=== PATIENT | female | born 1980 | race Caucasian/White ===

== ENCOUNTER 2017-07-28 21:00 | Emergency (ER) | payer MEDICARE, MEDICAID ==
[2017-07-28 21:06] VITALS: BP 139/74
--- NOTE | 2017-07-28 21:43 | XRAY Preliminary Report ---
Exam: XR FOOT 3 VIEW LT IMPRESSION: Dorsal foot soft tissue swelling. No evidence for acute fracture. [facility] SITE ID: [id number]
--- NOTE | 2017-07-28 21:43 | XRAY Report ---
EXAM: LEFT FOOT RADIOGRAPHY EXAM DATE: 07/28/2017 09:15 PM. CLINICAL HISTORY: Fall, swelling.Left foot pain, dorsal swelling. COMPARISON: None. TECHNIQUE: 3 views. FINDINGS: Bones: Normal. No fractures or bone lesions. Joints: Normal. No subluxations. Soft Tissues: Dorsal foot soft tissue swelling. No evidence for acute fracture. IMPRESSION: Dorsal foot soft tissue swelling. No evidence for acute fracture. [facility] Referring Provider Line: [phone] SITE ID: [id number]
[2017-07-28] MEDS ORDERED: HYDROcod/ACET 5/325 Prepack 4 PO STA (21:45)
--- NOTE | 2017-07-28 21:49 | ED Physician Documentation ---
PD HPI LOWER EXT INJURY - Stated complaint Stated Complaint: FOOT INJURY - Chief complaint Chief Complaint: Ext Problem - History obtained from History obtained from: Patient - History of Present Illness PD HPI LOW EXT INJURY LOCATION: Other (She came off a trampoline wrong and injured her left foot today with an inversion complains of medial and pain at the top of the foot. 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 Musculoskeletal: Other - Past Surgical History Past Surgical History: Yes General: Cholecystectomy - Present Medications Home Medications: Ambulatory Orders Medication Instructions Recorded Confirmed Oxycodone HCl/Acetaminophen 1 - 2 tab PO Q4H PRN #10 tablet 03/09/15 11/30/15 [Percocet 5-325 mg Tablet] Acetaminophen [Tylenol Extra 1,000 mg PO Q8HR 11/30/15 11/30/15 Strength] Amoxicillin 11/30/15 Cefdinir 300 mg PO BID #14 capsule 11/30/15 Docusate Sodium 250Mg Capsule 250 mg PO BID 11/30/15 11/30/15 [Colace 250Mg Capsule] Ibuprofen 800 mg PO TID 11/30/15 11/30/15 HYDROcod/ACETAM 5/325 [[place] 5/325] 1 - 2 ea PO Q6H PRN #7 tablet 07/28/17 - Allergies Allergies/Adverse Reactions: Allergies Allergy/AdvReac Type Severity Reaction Status Date / Time Penicillins Allergy Intermediate Rash Verified 07/28/17 21:06 Tetracyclines Allergy Intermediate Rash Verified 07/28/17 21:06 cephalexin monohydrate * AdvReac Intermediate VOMITING Verified 07/28/17 21:06 [From Keflex] erythromycin base AdvReac VOMITING Verified 07/28/17 21:06 - Social History Does the pt smoke?: Yes Smoking Status: Current every day smoker Does the pt drink ETOH?: Yes Does the pt have substance abuse?: Yes - Immunizations Immunizations are current?: No - POLST Patient has POLST: No PD ED PE NORMAL - Vitals Vital signs reviewed: Yes - General General: Alert and oriented X 3, No acute distress - Neck Neck: Supple, no meningeal sign, No bony TTP - Extremities Extremities: Other (Left foot:, She is clear objective swelling kind of over the distal second through fourth metatarsals with tenderness there and over the first metatarsal, no deformity.) - Neuro Neuro: Alert and oriented X 3, Normal speech Results - Vitals Vitals: Vital Signs - 24 hr 07/28/17 21:05 Temperature 36.9 C Heart Rate 88 Respiratory 16 Rate Blood Pressure 139/74 H O2 Saturation 99 Oxygen O2 Source Room air - Rads (name of study) 3v L foot Radiology: EMP read contemporaneously (yoly) Departure - Departure Disposition: Home, Self Care Clinical Impression: Sprain of left foot Qualifiers: Encounter type: initial encounter Qualified Code(s): S93.602A - Unspecified sprain of left foot, initial encounter Condition: Good Record reviewed to determine appropriate education?: Yes Instructions: ED Sprain Foot Prescriptions: HYDROcod/ACETAM 5/325 [[place] 5/325] 1 - 2 ea PO Q6H PRN #7 tablet PRN Reason: Pain Comments: Recheck with your doctor in 1 week if not better. Return if worse. Your blood pressure was elevated today on check into the emergency department. This does not mean that you have hypertension, it is a common phenomenon to come to the emergency department and have elevated blood pressure. I recommend that you see your primary care physician within the week to have it rechecked when you are feeling better. Do not drink or drive while taking narcotic pain medication. Note that many narcotic pain relievers also contain Tylenol/acetaminophen. Please ensure that your total dose of acetaminophen from all sources does not exceed 3 g (3000 mg) per day. You may get constipated while on this medication. Take a stool softener such as Colace twice a day while you are on it. Also add an jrdh-jqy-mirzoan laxative such as senna or MiraLAX on any day that you do not have a bowel movement. If you received a narcotic pain medication or sedative while in the emergency department, do not drive for the next 24 hours. Discharge Date/Time: 07/28/17 22:07
== END 2017-07-28 22:07 | disposition home or self-care (01) ==
LOC: ED 21:00
DX: S93.602A Unspecified sprain of left foot, initial encounter (principal); X50.1XXA Overexertion from prolonged static or awkward postures, initial encounter; Y93.44 Activity, trampolining; Y92.830 Public park as the place of occurrence of the external cause; R03.0 Elevated blood-pressure reading, without diagnosis of hypertension; F17.200 Nicotine dependence, unspecified, uncomplicated
CPT/HCPCS: 99283

== ENCOUNTER 2018-09-08 17:09 | Emergency (ER) | payer MEDICARE, MEDICAID ==
[2018-09-08 17:32] LABS: BASOPHILS # (AUTO) 0.1 10^3/uL (0.0-0.1); BASOPHILS % (AUTO) 0.6 %; EOSINOPHILS # (AUTO) 0.2 10^3/uL (0.0-0.7); EOSINOPHILS % (AUTO) 1.1 %; HGB - HEMOGLOBIN 15.6 g/dL (12.0-16.0); LYMPHOCYTES # (AUTO) 3.5 10^3/uL (1.5-3.5); LYMPHOCYTES % (AUTO) 23.7 %; MEAN CORPUSCULAR HEMOGLOBIN 29.8 pg (27.0-31.0); MEAN CORPUSCULAR VOLUME 90.4 fL (81.0-99.0); MONOCYTES # (AUTO) 0.8 10^3/uL (0.0-1.0); MONOCYTES % (AUTO) 5.4 %; NEUTROPHILS % (AUTO) 68.8 %; PLT - PLATELET COUNT 284 10^3/uL (130-450); RED BLOOD COUNT 5.23 10^6/uL (4.20-5.40); RED CELL DISTRIBUTION WIDTH 12.3 % (12.0-15.0); WHITE BLOOD COUNT 14.5 x10^3/uL (4.8-10.8)
[2018-09-08 17:40] LABS: BILIRUBIN,URINE NEGATIVE (NEGATIVE); GLUCOSE, URINE (UA) NEGATIVE (NEGATIVE); KETONES,URINE (UA) NEGATIVE (NEGATIVE); LEUKOCYTE ESTERASE, URINE NEGATIVE (NEGATIVE); NITRITE,URINE NEGATIVE (NEGATIVE); OCCULT BLOOD,URINE NEGATIVE (NEGATIVE); PH,URINE 7.5 PH (5.0-7.5); PROTEIN,URINE NEGATIVE (NEGATIVE); UROBILINOGEN,URINE 0.2 (NORMAL) E.U./dL (NORMAL)
[2018-09-08 17:43] LABS: ALBUMIN 4.5 g/dL (3.2-5.5); ALBUMIN/GLOBULIN RATIO 1.6 (1.0-2.2); BILIRUBIN,TOTAL 1.2 mg/dL (0.2-1.0); CALCIUM 9.3 mg/dL (8.5-10.3); CREATININE 0.8 mg/dL (0.4-1.0); TOTAL PROTEIN 7.4 g/dL (6.7-8.2)
[2018-09-08 17:43] LABS: CLARITY,URINE CLEAR (CLEAR); HCG UR QUAL NEGATIVE
[2018-09-08] MEDS ORDERED: ACETAMINOPHEN 1,000 MG/100 ML 100 ML IV STA (17:50)
--- NOTE | 2018-09-08 17:58 | ED Physician Documentation ---
History of Present Illness - Stated complaint Stated Complaint: FEM - Chief complaint Chief Complaint: General - History obtained from History obtained from: Patient - History of Present Illness Timing: Today Pain level max: 9 Pain level now: 9 - Additonal information Additional information: 38-year-old female presents to the emergency department the right lower quadrant and right pelvic pain for the past 3 to 4 hours. States it feels like "white hot shooting pain". Has never had pain like this before. Started her menses today. She states that her menses have been more painful than usual for the past several months. Denies any changes in sexual partners. No vaginal discharge. No recent surgery. Nothing makes it better. 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 Musculoskeletal: Other - Past Surgical History Past Surgical History: Yes General: Cholecystectomy - Present Medications Home Medications: Ambulatory Orders Medication Instructions Recorded Confirmed Oxycodone HCl/Acetaminophen 1 - 2 tab PO Q4H PRN #10 tablet 03/09/15 11/30/15 [Percocet 5-325 mg Tablet] Acetaminophen [Tylenol Extra 1,000 mg PO Q8HR 11/30/15 11/30/15 Strength] Amoxicillin 11/30/15 Cefdinir 300 mg PO BID #14 capsule 11/30/15 Docusate Sodium 250Mg Capsule 250 mg PO BID 11/30/15 11/30/15 [Colace 250Mg Capsule] Ibuprofen 800 mg PO TID 11/30/15 11/30/15 HYDROcod/ACETAM 5/325 [[place] 5/325] 1 - 2 ea PO Q6H PRN #7 tablet 07/28/17 Hydrocodone/Acetaminophen 1 - 2 each PO Q6H PRN #14 tablet 09/08/18 [Hydrocodon-Acetaminophen 5-325] Ibuprofen [Motrin] 800 mg PO Q8H PRN #30 tablet 09/08/18 Ondansetron Odt [Zofran] 4 mg TL Q6H PRN #10 tablet 09/08/18 - Allergies Allergies/Adverse Reactions: Allergies Allergy/AdvReac Type Severity Reaction Status Date / Time Penicillins Allergy Intermediate Rash Verified 09/08/18 17:15 Tetracyclines Allergy Intermediate Rash Verified 09/08/18 17:15 cephalexin monohydrate * AdvReac Intermediate VOMITING Verified 09/08/18 17:15 [From Keflex] erythromycin base AdvReac VOMITING Verified 09/08/18 17:15 - Social History Does the pt smoke?: Yes Smoking Status: Current every day smoker Does the pt drink ETOH?: Yes Does the pt have substance abuse?: No - Immunizations Immunizations are current?: Yes - POLST Patient has POLST: No PD ED PE NORMAL - Vitals Vital signs reviewed: Yes - General General: Alert and oriented X 3, No acute distress, Well developed/nourished - HEENT HEENT: PERRL, Moist mucous membranes - Neck Neck: Supple, no meningeal sign - Cardiac Cardiac: RRR, Strong equal pulses - Respiratory Respiratory: No respiratory distress, Clear bilaterally - Abdomen Abdomen: Soft, Non distended, Other (TTP RLQ no peritoneal signs. tender just below mcburney's point.) - Female Female : Pt declined - Back Back: No CVA TTP, No spinal TTP - Derm Derm: Warm and dry - Extremities Extremities: No edema - Neuro Neuro: Alert and oriented X 3 - Psych Psych: Normal mood, Normal affect Results - Vitals Vitals: Vital Signs - 24 hr 09/08/18 09/08/18 09/08/18 17:12 19:15 20:27 Temperature 36.8 C 36.9 C Heart Rate 80 78 66 Respiratory 14 16 18 Rate Blood Pressure 120/85 H 111/82 H 110/79 O2 Saturation 98 99 98 Oxygen O2 Source Room air - Labs Labs: Laboratory Tests 09/08/18 09/08/18 09/08/18 17:20 17:23 17:23 WBC 14.5 H RBC 5.23 Hgb 15.6 Hct 47.3 H MCV 90.4 MCH 29.8 MCHC 33.0 RDW 12.3 Plt Count 284 MPV 10.0 Neut # (Auto) 10.0 H Lymph # (Auto) 3.5 [place] # (Auto) 0.8 Eos # (Auto) 0.2 Baso # (Auto) 0.1 Absolute Nucleated RBC 0.00 Nucleated RBC % 0.0 Sodium 138 Potassium 3.8 Chloride 102 Carbon Dioxide 25 Anion Gap 11.0 BUN 15 Creatinine 0.8 Estimated GFR (MDRD) 80 L Glucose 100 Calcium 9.3 Total Bilirubin 1.2 H AST 16 ALT 14 Alkaline Phosphatase 44 Total Protein 7.4 Albumin 4.5 Globulin 2.9 Albumin/Globulin Ratio 1.6 Lipase 41 Urine Color YELLOW Urine Clarity CLEAR Urine pH 7.5 Ur Specific [place] 1.010 Urine Protein NEGATIVE Urine Glucose (UA) NEGATIVE Urine Ketones NEGATIVE Urine Occult Blood NEGATIVE Urine Nitrite NEGATIVE Urine Bilirubin NEGATIVE Urine Urobilinogen 0.2 (NORMAL) Ur Leukocyte Esterase NEGATIVE Ur Microscopic Review NOT INDICATED Urine Culture Comments NOT INDICATED Urine HCG, Qual NEGATIVE - Rads (name of study) CT abd/pelvis Radiology: Prelim report reviewed, EMP read contemporaneously, See rad report (Moderate right-sided hydroureteronephrosis, new since the prior of 11/30/2015 when there was mild hydronephrosis. Kidneys appear to enhance symmetrically. No obstructing calculus. Mid to distal ureter is difficult to delineate from surrounding structures. There appears to be a transition in the distal ureter. This could reflect stricture, neoplasm, or recently passed calculus. Follow-up urologic consultation and consideration of CT urogram or ureteroscopy is suggested. ) pelvic US Radiology: Prelim report reviewed, EMP read contemporaneously, See rad report (Intramural uterine fibroids. No other significant abnormality. No adnexal mass. No free fluid.Endometrial hickness is 10 mm) PD MEDICAL DECISION MAKING - ED course Complexity details: reviewed results, re-evaluated patient, considered differential, d/w patient ED course: 38-year-old female presents to the emergency department with right lower quadrant abdominal pain. She also has been having painful menses recently. Has a fibroid uterus on ultrasound. She also appears to have recently passed a right-sided ureteral stone. Pain well controlled in the emergency department. She states that she has had problems with this kidney in the past and I recommend that she see urology. Patient is well-appearing, nontoxic. Afebrile. Tolerating p.o. without difficulty. Pain well controlled. Patient counseled regarding signs and symptoms for which I believe and urgent re-evaluation would be necessary. Patient with good understanding of and agreement to plan and is comfortable going home at this time This document was made in part using voice recognition software. While efforts are made to proofread this document, sound alike and grammatical errors may occur. Departure - Departure Disposition: 01 Home, Self Care Clinical Impression: Ureteral stone Uterine fibroid Qualifiers: Uterine leiomyoma location: unspecified location Qualified Code(s): D25.9 - Leiomyoma of uterus, unspecified Condition: Good Health Concerns: pelvic pain Plan of Treatment: supportive Care Goals: improve pain Assessment: improved Instructions: ED Stone Renal Passed, ED Fibroids Follow-Up: [facility] [Provider Group] [facility] [Provider Group] [facility] [Provider Group] [facility] [Provider Group] Prescriptions: Hydrocodone/Acetaminophen [Hydrocodon-Acetaminophen 5-325] 1 - 2 each PO Q6H PRN #14 tablet PRN Reason: pain Ibuprofen [Motrin] 800 mg PO Q8H PRN #30 tablet PRN Reason: PAIN &/OR FEVER Ondansetron Odt [Zofran] 4 mg TL Q6H PRN #10 tablet PRN Reason: Nausea / Vomiting Comments: Return if you worsen. Follow-up with your doctor for further care. You should also follow-up with urology about your right kidney. Do not drink alcohol or drive while on narcotic pain medicine. Note that many narcotic pain relievers also contain tylenol/acetaminophen. Please ensure that your total dose of acetaminophen from all sources does not exceed 3 grams (3000mg) per day. You may constipated on this medication, take a stool softener such as "Colace" twice a day while you are on it. Also recommend a gucd-dmh-rqdekef laxative such as senna or MiraLAX any day that you do not have a bowel movement. If you received narcotic pain medication in the emergency department, do not drive or operate machinery for the next 24 hours. Moderate right-sided hydroureteronephrosis, new since the prior of 11/30/2015 when there was mild hydronephrosis. Kidneys appear to enhance symmetrically. No obstructing calculus. Mid to distal ureter is difficult to delineate from surrounding structures. There appears to be a transition in the distal ureter. This could reflect stricture, neoplasm, or recently passed calculus. Follow-up urologic consultation and consideration of CT urogram or ureteroscopy is suggested. Intramural uterine fibroids. No other significant abnormality. No adnexal mass. No free fluid.Endometrial thickness is 10 mm. Discharge Date/Time: 09/08/18 20:28
[2018-09-08] MEDS ORDERED: IOVERSOL 320 100 ML VIAL IVP ONE ×2 (18:01→19:41)
--- NOTE | 2018-09-08 19:22 | CT Report ---
Reason: RLQ abd pain Procedure Date: 09/08/2018 Accession Number: [id number] / [id number] Procedure: CT - Abdomen/Pelvis W CPT Code: FULL RESULT: EXAM: CT ABDOMEN AND PELVIS EXAM DATE: 09/08/2018 06:30 PM. CLINICAL HISTORY: RLQ abd pain. COMPARISONS: ABDOMEN/PELVIS W/O 11/30/2015 8:36 AM. TECHNIQUE: Routine helical CT imaging was performed through the abdomen and pelvis. IV contrast: 90 cc Optiray 320. Enteric contrast: No. Reconstructions: Coronal and sagittal. In accordance with CT protocol optimization, one or more of the following dose reduction techniques were utilized for this exam: automated exposure control, adjustment of mA and/or KV based on patient size, or use of iterative reconstructive technique. FINDINGS: ABDOMEN: Lung Bases: Incompletely included lower lungs are grossly clear. Heart size is within normal limits. No basilar effusions. Liver: Unremarkable. Spleen: 1.1 cm low-attenuation lesion in the spleen, likely benign. Pancreas: Unremarkable. Gallbladder/Bile Ducts: Gallbladder is unremarkable. Biliary tree is normal caliber. Adrenal Glands: Unremarkable. Kidneys: Left kidney: No mass, calculi, or hydronephrosis. Right kidney: Moderate hydroureteronephrosis. The ureter is difficult to follow, appearing to gradually transition distally to more normal caliber. No obstructing calculi. Peritoneum/Mesentery/Bowel: No free fluid, free air, or collection. No intestinal obstruction or inflammation. Appendix not definitely identified. No pericecal inflammatory changes. Lymph nodes: No mesenteric, periportal, or retroperitoneal lymphadenopathy. Vasculature: Abdominal aorta is nonaneurysmal. Portal vein is patent. Hepatic veins are patent. PELVIS: The bladder is unremarkable for the degree of distention. Uterus and ovaries are present. No obvious abnormally enlarged adnexal abnormalities. Device within the vagina. No pelvic lymphadenopathy. Bones: No suspicious osseous lesions. IMPRESSION: Moderate right-sided hydroureteronephrosis, new since the prior of 11/30/2015 when there was mild hydronephrosis. Kidneys appear to enhance symmetrically. No obstructing calculus. Mid to distal ureter is difficult to delineate from surrounding structures. There appears to be a transition in the distal ureter. This could reflect stricture, neoplasm, or recently passed calculus. Follow-up urologic consultation and consideration of CT urogram or ureteroscopy is suggested. [facility]
--- NOTE | 2018-09-08 19:37 | Ultrasound Report ---
Reason: pelvic pain, R Procedure Date: 09/08/2018 Accession Number: [id number] / [id number] Procedure: US - Pelvic w/Transvag+Doppler Comp CPT Code: FULL RESULT: EXAM: PELVIC ULTRASOUND EXAM DATE: 09/08/2018 06:23 PM. CLINICAL HISTORY: Pelvic pain, R. COMPARISON: None. TECHNIQUE: Realtime transabdominal pelvic scan performed to identify the uterus and adnexa and as an overview of other pelvic structures, followed by transvaginal scan to provide greater detail of the uterus and adnexa, with static image documentation. FINDINGS: Uterus: 9.5 x 5.4 x 6.6 cm, volume 180 cc. Anteverted position. Normal overall size and echotexture. Masses: Right fundal intramural fibroid measures 1 x 0.9 x 1.1 cm. Left lower intramural fibroid measures 0.9 x 0.7 x 1.4 cm. Endometrium: 10 mm. Normal. Cervix: Unremarkable. Right Ovary: 6 x 1.8 x 2.7 cm, volume 12.3 cc. Normal echotexture and blood flow. Left Ovary: 2.3 x 2.0 x 4.1 cm, volume 21.6 cc. Normal echotexture and blood flow. Free Fluid: None. Other: None. IMPRESSION: Intramural uterine fibroids. No other significant abnormality. No adnexal mass. No free fluid.Endometrial thickness is 10 mm. [facility]
[2018-09-08 20:28] VITALS: BP 110/79
== END 2018-09-08 20:28 | disposition home or self-care (01) ==
LOC: ED 17:09
DX: N13.2 Hydronephrosis with renal and ureteral calculous obstruction (principal); D25.1 Intramural leiomyoma of uterus; N94.6 Dysmenorrhea, unspecified; F17.200 Nicotine dependence, unspecified, uncomplicated
CPT/HCPCS: 36415; 74177; 76830; 76856; 80053; 81003; 81025; 83690; 85025; 93975; 96365; 99283; 99284; J0131; Q9967; 81001; 87086

== ENCOUNTER 2020-01-09 19:57 | Emergency (ER) | payer MEDICARE, MEDICAID ==
--- NOTE | 2020-01-09 21:20 | ED Physician Documentation ---
History of Present Illness - Stated complaint Stated Complaint: RT EAR PX - Chief complaint Chief Complaint: Heent - History obtained from History obtained from: Patient - Additonal information Additional information: The patient presents with complaints of right ear pain and drainage. She has a history of eczema. She acknowledges that she has been scratching at the outside of her ear where she has had an eczematous rash recently. However, she has started to note drainage from in the ear canal and has pain there as well. The drainage is yellowish. She has had no fevers, chills or sweats. Review of Systems Constitutional: reports: Reviewed and negative Eyes: reports: Reviewed and negative Ears: reports: Ear pain, Drainage/discharge. denies: Loss of hearing, Tinnitus/ringing, Foreign body Nose: reports: Reviewed and negative. denies: Rhinorrhea / runny nose, Congestion, Sinus pressure / pain Throat: reports: Reviewed and negative Cardiac: reports: Reviewed and negative. denies: Chest pain / pressure Respiratory: reports: Reviewed and negative. 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 Musculoskeletal: Other - Past Surgical History Past Surgical History: Yes General: Cholecystectomy - Present Medications Home Medications: Ambulatory Orders Medication Instructions Recorded Confirmed Oxycodone HCl/Acetaminophen 1 - 2 tab PO Q4H PRN #10 tablet 03/09/15 11/30/15 [Percocet 5-325 mg Tablet] Acetaminophen [Tylenol Extra 1,000 mg PO Q8HR 11/30/15 11/30/15 Strength] Amoxicillin 11/30/15 Cefdinir 300 mg PO BID #14 capsule 11/30/15 Docusate Sodium 250Mg Capsule 250 mg PO BID 11/30/15 11/30/15 [Colace 250Mg Capsule] Ibuprofen 800 mg PO TID 11/30/15 11/30/15 HYDROcod/ACETAM 5/325 [[place] 5/325] 1 - 2 ea PO Q6H PRN #7 tablet 07/28/17 Hydrocodone/Acetaminophen 1 - 2 each PO Q6H PRN #14 tablet 09/08/18 [Hydrocodon-Acetaminophen 5-325] Ibuprofen [Motrin] 800 mg PO Q8H PRN #30 tablet 09/08/18 Ondansetron Odt [Zofran] 4 mg TL Q6H PRN #10 tablet 09/08/18 Mupirocin 1 gm TP TID 10 Days #1 oin.pf.leonardo 01/09/20 Neomycin/Polymyx/Hc Otic Drops 4 drops OT QID 10 Days #1 bottle 01/09/20 [Cortisporin Ear Susp] Tramadol HCl [Ultram] 50 mg PO Q6H PRN 3 Days #10 tablet 01/09/20 - Allergies Allergies/Adverse Reactions: Allergies Allergy/AdvReac Type Severity Reaction Status Date / Time Penicillins Allergy Intermediate Rash Verified 01/09/20 20:08 Tetracyclines Allergy Intermediate Rash Verified 01/09/20 20:08 cephalexin monohydrate * AdvReac Intermediate VOMITING Verified 01/09/20 20:08 [From Keflex] erythromycin base AdvReac VOMITING Verified 01/09/20 20:08 - Social History Does the pt smoke?: Yes Smoking Status: Current every day smoker Does the pt drink ETOH?: Yes Does the pt have substance abuse?: No - Immunizations Immunizations are current?: Yes - POLST Patient has POLST: No PD ED PE NORMAL - Vitals Vital signs reviewed: Yes - General General: Alert and oriented X 3, No acute distress - HEENT HEENT: PERRL, Other (Left ear examination was unremarkable. Examination of her right ear revealed an excoriated area at her right EAC and extending down the pinna. There was surrounding erythema and swelling. There was scant purulent drainage coming from the canal. When examined with an otoscope there was scant puru) - Neck Neck: Supple, no meningeal sign - Cardiac Cardiac: RRR, No murmur - Respiratory Respiratory: Clear bilaterally - Abdomen Abdomen: Normal bowel sounds, Soft, Non tender, Non distended - Derm Derm: Warm and dry - Extremities Extremities: No deformity - Neuro Neuro: Alert and oriented X 3 - Psych Psych: Normal mood, Normal affect Results - Vitals Vitals: Vital Signs - 24 hr 01/09/20 01/09/20 20:00 21:43 Temperature 37.1 C 36.7 C Heart Rate 97 85 Respiratory 16 19 Rate Blood Pressure 123/81 H 111/77 O2 Saturation 97 98 Oxygen O2 Source Room air PD MEDICAL DECISION MAKING - ED course ED course: Clinically, the patient appears to have an acute right otitis externa. However, on the outside of the ear there is an area that appears to have skin breakdown due to eczema. There is surrounding cellulitis of the pinna.I discussed the pathophysiology of this with the patient. She was provided a prescription for both Cortisporin otic as well as mupirocin cream. We reviewed the appropriate use, risks and side effects of these as well as Ultram for which she was also provided a prescription. She is to follow-up in the next several days with her primary care provider for further evaluation and treatment. Departure - Departure Disposition: 01 Home, Self Care Clinical Impression: Impetigo Otitis externa Qualifiers: Otitis externa type: other infective Chronicity: acute Laterality: right Qualified Code(s): H60.391 - Other infective otitis externa, right ear Condition: Stable Instructions: Impetigo, ED Otitis Externa Prescriptions: Neomycin/Polymyx/Hc Otic Drops [Cortisporin Ear Susp] 4 drops OT QID 10 Days #1 bottle Mupirocin 1 gm TP TID 10 Days #1 oin.pf.leonardo Tramadol HCl [Ultram] 50 mg PO Q6H PRN 3 Days #10 tablet PRN Reason: Pain 5-7 Discharge Date/Time: 01/09/20 21:42
[2020-01-09] MEDS ORDERED: NEOMYCIN/POLYMYX/HC OTIC DROPS RIGHTEAR STA (21:31)
[2020-01-09 21:44] VITALS: BP 111/77
[2020-01-09] MEDS ORDERED: NEOMYCIN/BACITRA/POLYMYX OINT PACKET TOP ONE (22:00)
== END 2020-01-09 21:42 | disposition home or self-care (01) ==
LOC: ED 19:57
DX: H60.541 Acute eczematoid otitis externa, right ear (principal); H60.11 Cellulitis of right external ear; L01.00 Impetigo, unspecified; F17.200 Nicotine dependence, unspecified, uncomplicated
CPT/HCPCS: 99283; 99284; A9270

== ENCOUNTER 2021-04-05 15:48 | Emergency (ER) | payer MEDICARE, MEDICAID ==
[2021-04-05 17:04] LABS: BASOPHILS # (AUTO) 0.1 10^3/uL (0.0-0.1); BASOPHILS % (AUTO) 0.5 %; EOSINOPHILS % (AUTO) 0.1 %; HCT - HEMATOCRIT 43.3 % (37.0-47.0); HGB - HEMOGLOBIN 14.8 g/dL (12.0-16.0); LYMPHOCYTES # (AUTO) 1.8 10^3/uL (1.5-3.5); LYMPHOCYTES % (AUTO) 12.2 %; MEAN CORPUSCULAR HEMOGLOBIN 30.7 pg (27.0-31.0); MEAN CORPUSCULAR HGB CONC 34.2 g/dL (32.0-36.0); MEAN CORPUSCULAR VOLUME 89.8 fL (81.0-99.0); MEAN PLATELET VOLUME 10.2 fL (7.9-10.8); MONOCYTES # (AUTO) 1.3 10^3/uL (0.0-1.0); MONOCYTES % (AUTO) 8.8 %; NEUTROPHILS # (AUTO) 11.5 10^3/uL (1.5-6.6); NEUTROPHILS % (AUTO) 77.9 %; PLT - PLATELET COUNT 257 10^3/uL (130-450); RED BLOOD COUNT 4.82 10^6/uL (4.20-5.40); RED CELL DISTRIBUTION WIDTH 12.8 % (12.0-15.0); WHITE BLOOD COUNT 14.8 x10^3/uL (4.8-10.8)
[2021-04-05 17:17] LABS: ALBUMIN/GLOBULIN RATIO 1.3 (1.0-2.2); CALCIUM 8.8 mg/dL (8.5-10.3); CREATININE 0.9 mg/dL (0.4-1.0); TOTAL PROTEIN 7.2 g/dL (6.7-8.2)
[2021-04-05 17:25] LABS: GLUCOSE, URINE (UA) NEGATIVE (NEGATIVE); KETONES,URINE (UA) 40 mg/dL (NEGATIVE); LEUKOCYTE ESTERASE, URINE LARGE (NEGATIVE); NITRITE,URINE NEGATIVE (NEGATIVE); OCCULT BLOOD,URINE LARGE (NEGATIVE); PROTEIN,URINE 100 mg/dL (NEGATIVE); UROBILINOGEN,URINE 0.2 (NORMAL) E.U./dL (NORMAL)
[2021-04-05 17:40] LABS: BILIRUBIN,URINE NEGATIVE (NEGATIVE); CLARITY,URINE CLEAR (CLEAR); ICTOTEST,URINE NEGATIVE
[2021-04-05 17:41] LABS: BACTERIA,URINE Rare /HPF (None Seen); HCG UR QUAL POSITIVE; SQUAMOUS EPITHELIAL CELL,UR RARE Squamous (<= Few); WBC,URINE >25 /HPF (0-5)
--- NOTE | 2021-04-05 18:40 | ED Physician Documentation ---
PD HPI FEMALE - Stated complaint Stated Complaint: LOWER BACK PX, FLANK PX - Chief complaint Chief Complaint: Abd Pain - History obtained from History obtained from: Patient - History of Present Illness Timing - onset: Yesterday Timing - duration: Days (2) Timing - details: Gradual onset, Still present Associated symptoms: Back pain, Dysuria, Urinary frequency Contributing factors: No: Similar symptoms before: Diagnosis (UTI and pyelonephritis) Recently seen: Not recently seen - Additional information Additional information: Previously well 40-year-old female has developed developed urinary urgency frequency and dysuria and yesterday she has begun to develop some back pain as well as some nausea. She has not had fever with this. She has not vomited with this. She has had this happen to her previously she has had kidney infection a number of times and she feels like she is getting a urinary tract infection at least once a month. She has not been to see the urologist. Review of Systems Constitutional: denies: Fever Eyes: denies: Decreased vision Ears: denies: Ear pain Nose: denies: Rhinorrhea / runny nose, Congestion Throat: denies: Sore throat Cardiac: denies: Chest pain / pressure, Palpitations Respiratory: denies: Dyspnea, Cough GI: reports: Abdominal Pain, Nausea. denies: Vomiting, Constipation, Diarrhea : reports: Dysuria, Frequency Skin: denies: Rash Musculoskeletal: reports: Back pain. 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: Ovarian cysts Musculoskeletal: Other - Past Surgical History Past Surgical History: Yes General: Cholecystectomy - Present Medications Home Medications: Ambulatory Orders Medication Instructions Recorded Confirmed Oxycodone HCl/Acetaminophen 1 - 2 tab PO Q4H PRN #10 tablet 03/09/15 11/30/15 [Percocet 5-325 mg Tablet] Acetaminophen [Tylenol Extra 1,000 mg PO Q8HR 11/30/15 11/30/15 Strength] Amoxicillin 11/30/15 Cefdinir 300 mg PO BID #14 capsule 11/30/15 Docusate Sodium 250Mg Capsule 250 mg PO BID 11/30/15 11/30/15 [Colace 250Mg Capsule] Ibuprofen 800 mg PO TID 11/30/15 11/30/15 HYDROcod/ACETAM 5/325 [[place] 5/325] 1 - 2 ea PO Q6H PRN #7 tablet 07/28/17 Hydrocodone/Acetaminophen 1 - 2 each PO Q6H PRN #14 tablet 09/08/18 [Hydrocodon-Acetaminophen 5-325] Ibuprofen [Motrin] 800 mg PO Q8H PRN #30 tablet 09/08/18 Ondansetron Odt [Zofran] 4 mg TL Q6H PRN #10 tablet 09/08/18 Mupirocin 1 gm TP TID 10 Days #1 oin.pf.leonardo 01/09/20 Neomycin/Polymyx/Hc Otic Drops 4 drops OT QID 10 Days #1 bottle 01/09/20 [Cortisporin Ear Susp] Tramadol HCl [Ultram] 50 mg PO Q6H PRN 3 Days #10 tablet 01/09/20 Cefdinir 300 mg PO BID #14 cap 04/05/21 Ondansetron Odt [Zofran] 4 mg TL Q6H PRN #10 tablet 04/05/21 - Allergies Allergies/Adverse Reactions: Allergies Allergy/AdvReac Type Severity Reaction Status Date / Time Penicillins Allergy Intermediate Rash Verified 04/05/21 16:48 Tetracyclines Allergy Intermediate Rash Verified 04/05/21 16:48 cephalexin monohydrate * AdvReac Intermediate VOMITING Verified 04/05/21 16:48 [From Keflex] erythromycin base AdvReac VOMITING Verified 04/05/21 16:48 - Social History Does the pt smoke?: Yes Smoking Status: Current every day smoker Does the pt drink ETOH?: Yes Does the pt have substance abuse?: No - Immunizations Immunizations are current?: Yes - POLST Patient has POLST: No PD ED PE NORMAL - Vitals Vital signs reviewed: Yes (Normal) - General General: Alert and oriented X 3, No acute distress, Well developed/nourished - HEENT HEENT: Atraumatic, PERRL, EOMI - Neck Neck: Supple, no meningeal sign, No bony TTP - Cardiac Cardiac: RRR, No murmur - Respiratory Respiratory: No respiratory distress, Clear bilaterally - Abdomen Abdomen: Normal bowel sounds, Soft, Non distended, No organomegaly, Other (Tenderness to bimanual palpation of the right kidney) - Back Back: No spinal TTP, Other (Right CVA tenderness) - Derm Derm: Normal color, Warm and dry - Extremities Extremities: No deformity, No edema - Neuro Neuro: Alert and oriented X 3, 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, No motor deficit, No sensory deficit, Normal speech Eye Opening: Spontaneous Motor: Obeys Commands Verbal: Oriented GCS Score: 15 - Psych Psych: Normal mood, Normal affect Results - Vitals Vitals: Vital Signs - 24 hr 04/05/21 16:44 Temperature 37.0 C Heart Rate 87 Respiratory 18 Rate Blood Pressure 117/71 O2 Saturation 97 Oxygen O2 Source Room air - Labs Labs: Laboratory Tests 04/05/21 04/05/21 04/05/21 16:53 16:56 16:56 WBC 14.8 H RBC 4.82 Hgb 14.8 Hct 43.3 MCV 89.8 MCH 30.7 MCHC 34.2 RDW 12.8 Plt Count 257 MPV 10.2 Neut # (Auto) 11.5 H Lymph # (Auto) 1.8 Nance # (Auto) 1.3 H Eos # (Auto) 0.0 Baso # (Auto) 0.1 Absolute Nucleated RBC 0.00 Nucleated RBC % 0.0 Sodium 135 Potassium 4.0 Chloride 103 Carbon Dioxide 21 Anion Gap 11.0 BUN 14 Creatinine 0.9 Estimated GFR (MDRD) 69 L Glucose 98 Calcium 8.8 Total Bilirubin 1.0 AST 14 ALT 15 Alkaline Phosphatase 49 Total Protein 7.2 Albumin 4.0 Globulin 3.2 Albumin/Globulin Ratio 1.3 Lipase 30 Urine Color YELLOW Urine Clarity CLEAR Urine pH 6.0 Ur Specific [place] 1.025 Urine Protein 100 H Urine Glucose (UA) NEGATIVE Urine Ketones 40 H Urine Occult Blood LARGE H Urine Nitrite NEGATIVE Urine Bilirubin NEGATIVE Urine Urobilinogen 0.2 (NORMAL) Ur Leukocyte Esterase LARGE H Urine RBC 6-10 H Urine WBC >25 H Ur Squamous Epith Cells RARE Squamous Urine Bacteria Rare Ur Microscopic Review INDICATED Urine Culture Comments INDICATED Urine HCG, Qual POSITIVE PD MEDICAL DECISION MAKING - ED course Complexity details: reviewed old records, reviewed results, re-evaluated patient, considered differential, d/w patient ED course: 40-year-old female with prior history of pyelonephritis has symptoms and signs consistent with pyelonephritis again today with flank pain and urinary urgency frequency and dysuria she has a tender right kidney on examination. She has elevated white blood cell count and greater than 25 white blood cells per high- power field in the urinalysis. She is administered a gram of Rocephin IM and 60 mg of Toradol. I discussed with the patient treatment of pyelonephritis and a visit to the urologist as this is happened to her more than 1 time. As a surprise the patient was found to be and further work-up is indicated. A ultrasound and quantitative hCG are added onto the patient's laboratory values and at shift change care is turned over to Dr. Hunter. Departure - Departure Clinical Impression: Pyelonephritis, Early stage of Instructions: ED Kidney Infec Female Follow-Up: [facility] [Provider Group] Yarelis Garcia MD [Physician No Access] - Prescriptions: Cefdinir 300 mg PO BID #14 cap Ondansetron Odt [Zofran] 4 mg TL Q6H PRN #10 tablet PRN Reason: Nausea / Vomiting
[2021-04-05] MEDS ORDERED: lidocaine 1% 20 ML MDV ONE (19:26)
[2021-04-05] MEDS: cefTRIAXone 1 GM VIAL IM STA (19:27)
[2021-04-05] MEDS: KETOROLAC 60 MG/2 ML VIAL IM STA (19:28)
[2021-04-05] MEDS: LIDOCAINE 1% 2 ML VIAL MC ONE (19:28)
--- NOTE | 2021-04-05 20:37 | Ultrasound Report ---
PROCEDURE: OB First Trimester INDICATIONS: early right sided pain OUTSIDE/PRIOR DATING DATA: Last menstrual period (LMP): 03/06/2021. LMP-based estimated date of delivery (PATRICA): 12/11/2021. First dating scan (date and location): 04/05/2021. Estimated date of delivery (PATRICA) from first dating scan: 12/06/2021. TECHNIQUE: Real-time scanning was performed of the fetus and maternal pelvic organs, with image documentation. COMPARISON: None FINDINGS: Embryo: There is a small possible intrauterine gestational sac seen without pole or yolk sac. Mean gestational sac diameter measures 3.3 mm with estimated gestational age of 5 weeks, 0 day. Heart rate: No heart rate is detected at this time. Measurement variability in dating: +/- 4 weeks by LMP, +/- 7 days by mean sac diameter (use before 6 weeks gestation if crown-rump length not able to be measured), +/- 5 days by crown-rump length (6-12 weeks gestation). Maternal organs: Right ovary is within normal limits. 2.5 x 2.1 x 2.5 cm corpus luteum is noted in le ft ovary. Trace amount of free fluid is seen in posterior cul-de-sac and left adnexa. Enlarged myomatous uterus is seen with heterogeneous myometrial echotexture. Largest fibroid measures approximately 1.6 x 1.6 x 1.5 cm in size. IMPRESSION: 1. Possible early single intrauterine gestational sac. No pole or cardiac activity is de tected at this time. Follow-up study and follow-up with beta-hCG level is recommended for evaluation of viability. 2. Enlarged and myomatous uterus as above. 2.5 cm corpus luteum is noted in left ovary. Reviewed by: Luis Miguel Nelson MD on 04/05/2021 8:35 PM PST Approved by: Luis Miguel Nelson MD on 04/05/2021 8:35 PM PST Station ID: [id number]
[2021-04-05] MEDS ORDERED: HYDROcod/ACET 5/325 Prepack 4 PO STA (20:50)
[2021-04-05] MEDS ORDERED: HYDROmorphone 1 MG/ML CARPUJECT IM STA (20:50)
[2021-04-05 21:11] VITALS: BP 107/72
== END 2021-04-05 21:11 | disposition home or self-care (01) ==
LOC: ED 15:48
DX: O99.891 Other specified diseases and conditions complicating pregnancy (principal); N12 Tubulo-interstitial nephritis, not specified as acute or chronic; O99.331 Smoking (tobacco) complicating pregnancy, first trimester; F17.200 Nicotine dependence, unspecified, uncomplicated; Z3A.01 Less than 8 weeks gestation of pregnancy
CPT/HCPCS: 36415; 80053; 81001; 81003; 81025; 83690; 84702; 85025; 87077; 87086; 96372; 99283; 99284

== ENCOUNTER 2021-04-08 16:09 | Outpatient (CLI) | payer MEDICARE, MEDICAID | END 2021-04-08 16:10 | disposition home or self-care (01) | LOC: LAB 16:09 | PROVIDERS: ATTEND Obstetrics & Gynecology | DX: Z33.1 Pregnant state, incidental (principal) | CPT/HCPCS: 36415; 84702 ==

== ENCOUNTER 2021-04-13 14:34 | Outpatient (CLI) | payer MEDICARE, MEDICAID | END 2021-04-13 14:35 | disposition home or self-care (01) | LOC: LAB 14:34 | PROVIDERS: ATTEND Obstetrics & Gynecology | DX: Z32.01 Encounter for pregnancy test, result positive (principal) | CPT/HCPCS: 36415; 84702 ==

== ENCOUNTER 2021-04-16 14:04 | Outpatient (CLI) | payer MEDICARE, MEDICAID | END 2021-04-16 14:05 | disposition home or self-care (01) | LOC: LAB 14:04 | PROVIDERS: ATTEND Obstetrics & Gynecology | DX: Z53.9 Procedure and treatment not carried out, unspecified reason (principal) ==

== ENCOUNTER 2021-04-19 15:26 | Outpatient (CLI) | payer MEDICARE, MEDICAID | END 2021-04-19 15:27 | disposition home or self-care (01) | LOC: LAB 15:26 | PROVIDERS: ATTEND Obstetrics & Gynecology | DX: Z32.01 Encounter for pregnancy test, result positive (principal) | CPT/HCPCS: 36415; 84702 ==

== ENCOUNTER 2021-11-29 16:16 | Outpatient (CLI) | payer OTHER, MEDICARE, MEDICAID | END 2021-11-29 16:17 | disposition critical access hospital (66) | LOC: EMS 16:16 | DX: R51.9 Headache, unspecified (principal); V53.5XXA Driver of pick-up truck or van injured in collision with car, pick-up truck or van in traffic accident, initial encounter; Y92.413 State road as the place of occurrence of the external cause | CPT/HCPCS: A0425; A0429 ==

== ENCOUNTER 2021-12-17 15:37 | Emergency (ER) | payer MEDICARE, MEDICAID ==
[2021-12-17 15:50] VITALS: BP 112/72
--- NOTE | 2021-12-17 15:54 | ED Physician Documentation ---
PD HPI LOWER EXT INJURY - Stated complaint Stated Complaint: L CALF PX - Chief complaint Chief Complaint: Trauma Ext - History obtained from History obtained from: Patient - History of Present Illness PD HPI LOW EXT INJURY LOCATION: Left, Calf Type of injury: Twist (She was pulling at a heavy refrigerator that had broken and not working. She felt a pop in her calf with pain abruptly and pain continues with ankle movement and attempted walking. 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 Musculoskeletal: None - Past Surgical History Past Surgical History: Yes General: Cholecystectomy - Present Medications Home Medications: Ambulatory Orders Medication Instructions Recorded Confirmed Oxycodone HCl/Acetaminophen 1 - 2 tab PO Q4H PRN #10 tablet 03/09/15 11/30/15 [Percocet 5-325 mg Tablet] Acetaminophen [Tylenol Extra 1,000 mg PO Q8HR 11/30/15 11/30/15 Strength] Amoxicillin 11/30/15 Cefdinir 300 mg PO BID #14 capsule 11/30/15 Docusate Sodium 250Mg Capsule 250 mg PO BID 11/30/15 11/30/15 [Colace 250Mg Capsule] Ibuprofen 800 mg PO TID 11/30/15 11/30/15 HYDROcod/ACETAM 5/325 [[place] 5/325] 1 - 2 ea PO Q6H PRN #7 tablet 07/28/17 Hydrocodone/Acetaminophen 1 - 2 each PO Q6H PRN #14 tablet 09/08/18 [Hydrocodon-Acetaminophen 5-325] Ibuprofen [Motrin] 800 mg PO Q8H PRN #30 tablet 09/08/18 Ondansetron Odt [Zofran] 4 mg TL Q6H PRN #10 tablet 09/08/18 Mupirocin 1 gm TP TID 10 Days #1 oin.pf.leonardo 01/09/20 Neomycin/Polymyx/Hc Otic Drops 4 drops OT QID 10 Days #1 bottle 01/09/20 [Cortisporin Ear Susp] Tramadol HCl [Ultram] 50 mg PO Q6H PRN 3 Days #10 tablet 01/09/20 Cefdinir 300 mg PO BID #14 cap 04/05/21 Ondansetron Odt [Zofran] 4 mg TL Q6H PRN #10 tablet 04/05/21 Naproxen 250 mg PO BID PRN #15 tablet 11/29/21 methocarbamoL [Robaxin] 500 mg PO Q6H #20 tablet 11/29/21 oxyCODONE [Roxicodone] 5 mg PO Q6H PRN #15 tablet 12/17/21 - Allergies Allergies/Adverse Reactions: Allergies Allergy/AdvReac Type Severity Reaction Status Date / Time Penicillins Allergy Intermediate Rash Verified 12/17/21 15:50 Tetracyclines Allergy Intermediate Rash Verified 12/17/21 15:50 cephalexin monohydrate * AdvReac Intermediate VOMITING Verified 12/17/21 15:50 [From Keflex] erythromycin base AdvReac VOMITING Verified 12/17/21 15:50 - Social History Does the pt smoke?: Yes Smoking Status: Current every day smoker Does the pt drink ETOH?: Yes Does the pt have substance abuse?: No - Immunizations Immunizations are current?: Yes - POLST Patient has POLST: No PD ED PE NORMAL - Vitals Vital signs reviewed: Yes - General General: Alert and oriented X 3, No acute distress, Well developed/nourished - Derm Derm: Normal color, Warm and dry, No rash - Extremities Extremities: Other (left mid calf posteromedial with marked tenderness to palpation. Slight soft area of the muscle shape in that area. No bruising. No edema. Achilles tendon is firm and intact, with pain in calf on plantar flexion, so strength limited. ) - Neuro Neuro: Alert and oriented X 3, No motor deficit, No sensory deficit Results - Vitals Vitals: Vital Signs - 24 hr 12/17/21 15:46 Temperature 36.6 C Heart Rate 96 Respiratory 14 Rate Blood Pressure 112/72 O2 Saturation 100 Oxygen O2 Source Room air - Rads (name of study) left tib/fib Radiology: Prelim report reviewed (no fractures), See rad report PD MEDICAL DECISION MAKING - ED course Complexity details: reviewed results, considered differential, d/w patient Departure - Departure Disposition: 01 Home, Self Care Clinical Impression: Gastrocnemius muscle tear Qualifiers: Encounter type: initial encounter Laterality: left Qualified Code(s): S86.112A - Strain of other muscle(s) and tendon(s) of posterior muscle group at lower leg level, left leg, initial encounter Condition: Stable Record reviewed to determine appropriate education?: Yes Instructions: Gastrocnemius Muscle Tear Follow-Up: [facility] [Provider Group] Prescriptions: oxyCODONE [Roxicodone] 5 mg PO Q6H PRN #15 tablet PRN Reason: Pain Comments: Your x-ray is good without any signs of bony injury. It does sound like you have a tear of part of the calf muscle (gastrocnemius). These are typically treated with less to no weightbearing and some immobiliza tion around the ankle as this will pull less on the calf muscles. These typically heal up over about 3 or 4 weeks. It be good to ensure its healing okay over the mid term of that so I would suggest a follow-up with orthopedics in about 1-1/2 to 2 weeks. Call early this coming week for an appointment time. Use your crutches at home for partial to no weightbearing. Use the ankle walking boot to support the ankle and lower leg for comfort and to pull less on the muscle. You can have it off when rested. Continue with some anti-inflammatory such as ibuprofen or naproxen 2-3 times daily. Add Tylenol every 4-6 hours if needed for pain and oxycodone if needed for worse pain. I did transmit a prescription for some pain medicine to [facility] in [place]. You may develop some bruising through the lower calf or even the ankle area over the next several days or so assuming some bleeding from the muscle tracking down the muscle and tendon sheath. I am prescribing a short course of narcotic pain medication for you. These are potentially dangerous and addictive medications that should be used carefully. These medications may constipate you. Take an [id number] stool softener such as docusate twice daily with plenty of water while taking these medications. If you go 24 hours without a bowel movement, take [id number] MiraLAX, per package instructions. Do not drink or drive while taking these medications. If you received narcotic or sedating medications while in the emergency department do not drive for 24 hours. Store this medication in a safe, secure place and out of reach of children. It is a violation of federal law to give or sell this medication to another person or to use in a manner other than prescribed. The ED will not refill narcotic prescriptions, including prescriptions lost or stolen. You can dispose of unwanted medications at the [facility]'s office or at several pharmacies such as [facility]. Discharge Date/Time: 12/17/21 16:44
[2021-12-17] MEDS ORDERED: oxyCODONE 5 MG TABLET PO STA (16:07)
[2021-12-17] MEDS ORDERED: ACETAMINOPHEN 325 MG TABLET PO STA (16:07)
--- NOTE | 2021-12-17 16:53 | XRAY Report ---
PROCEDURE: Tib/Fib LT INDICATIONS: acute pain mid lower leg with twisting/force yest TECHNIQUE: 2 views of the tibia and fibula were acquired. COMPARISON: None FINDINGS: Bones: No fractures or dislocations. No suspicious bony lesions. Soft tissues: No suspicious soft tissue calcifications or masses. IMPRESSION: Normal left tibia and fibular radiograph Reviewed by: Rohit Cee MD on 12/17/2021 3:52 PM AKDT Approved by: Rohit Cee MD on 12/17/2021 3:52 PM AKDT Station ID: [id number]
== END 2021-12-17 16:44 | disposition home or self-care (01) ==
LOC: ED 15:37
DX: S86.112A Strain of other muscle(s) and tendon(s) of posterior muscle group at lower leg level, left leg, initial encounter (principal); X50.1XXA Overexertion from prolonged static or awkward postures, initial encounter; Y93.89 Activity, other specified; Y92.009 Unspecified place in unspecified non-institutional (private) residence as the place of occurrence of the external cause; F17.200 Nicotine dependence, unspecified, uncomplicated
CPT/HCPCS: 73590; 99282; 99283; A9270

== ENCOUNTER 2022-02-07 10:29 | Outpatient (CLI) | payer MEDICARE, MEDICAID ==
[2022-02-07 11:19] LABS: THYROID STIMULATING HORMONE 1.65 uIU/mL (0.34-5.60)
[2022-02-07 11:21] LABS: FREE T4 (FREE THYROXINE) 0.85 ng/dL (0.58-1.64)
[2022-02-09 11:08] LABS: ANTI-DNA (DS) AB QN 1 IU/mL (0-9); CENTROMERE B ANTIBODIES <0.2 AI (0.0-0.9); CHROMATIN ANTIBODIES <0.2 AI (0.0-0.9); JO-1 AB <0.2 AI (0.0-0.9); RIBOSOMAL P ANTIBODIES <0.2 AI (0.0-0.9); RNP ANTIBODIES <0.2 AI (0.0-0.9); SCLERODERMA-70 ANTIBODIES <0.2 AI (0.0-0.9); SJOGREN'S ANTI-SS-A <0.2 AI (0.0-0.9); SJOGREN'S ANTI-SS-B <0.2 AI (0.0-0.9); SMITH ANTIBODIES <0.2 AI (0.0-0.9); SMITH/RNP ANTIBODIES <0.2 AI (0.0-0.9)
[2022-02-12 06:08] LABS: CARDIOLIPIN IGA <9 APL U/mL (0-11); CARDIOLIPIN IGG <9 GPL U/mL (0-14); CARDIOLIPIN IGM 9 MPL U/mL (0-12)
== END 2022-02-07 10:30 | disposition home or self-care (01) ==
LOC: LAB 10:29
PROVIDERS: ATTEND Nurse Practitioner
DX: O26.20 Pregnancy care for patient with recurrent pregnancy loss, unspecified trimester (principal)
CPT/HCPCS: 36415; 82397; 83516; 84439; 84443; 86147; 86225; 86235

== ENCOUNTER 2023-09-04 11:30 | Emergency (ER) | payer MEDICARE, BC, MEDICAID ==
[2023-09-04 12:10] LABS: BASOPHILS % (AUTO) 0.3 %; EOSINOPHILS % (AUTO) 0.1 %; HCT - HEMATOCRIT 40.1 % (37.0-47.0); HGB - HEMOGLOBIN 13.5 g/dL (12.0-16.0); LYMPHOCYTES # (AUTO) 1.4 10^3/uL (1.5-3.5); LYMPHOCYTES % (AUTO) 10.4 %; MEAN CORPUSCULAR HEMOGLOBIN 29.7 pg (27.0-31.0); MEAN CORPUSCULAR HGB CONC 33.7 g/dL (32.0-36.0); MEAN CORPUSCULAR VOLUME 88.3 fL (81.0-99.0); MEAN PLATELET VOLUME 9.9 fL (7.9-10.8); MONOCYTES # (AUTO) 0.5 10^3/uL (0.0-1.0); MONOCYTES % (AUTO) 3.4 %; NEUTROPHILS # (AUTO) 11.5 10^3/uL (1.5-6.6); NEUTROPHILS % (AUTO) 85.5 %; PLT - PLATELET COUNT 346 10^3/uL (130-450); RED BLOOD COUNT 4.54 10^6/uL (4.20-5.40); RED CELL DISTRIBUTION WIDTH 12.3 % (12.0-15.0); WHITE BLOOD COUNT 13.4 x10^3/uL (4.8-10.8)
[2023-09-04 12:24] LABS: ALBUMIN 4.5 g/dL (3.2-5.5); ALBUMIN/GLOBULIN RATIO 1.7 (1.0-2.2); BILIRUBIN,TOTAL 0.6 mg/dL (0.2-1.0); CALCIUM 9.6 mg/dL (8.5-10.3); CREATININE 0.8 mg/dL (0.6-1.3); TOTAL PROTEIN 7.1 g/dL (6.4-8.9)
[2023-09-04 12:42] LABS: BILIRUBIN,URINE NEGATIVE (NEGATIVE); GLUCOSE, URINE (UA) NEGATIVE (NEGATIVE); KETONES,URINE (UA) NEGATIVE (NEGATIVE); LEUKOCYTE ESTERASE, URINE SMALL (NEGATIVE); NITRITE,URINE NEGATIVE (NEGATIVE); OCCULT BLOOD,URINE LARGE (NEGATIVE); PH,URINE 6.5 PH (5.0-7.5); PROTEIN,URINE TRACE mg/dL (NEGATIVE); UROBILINOGEN,URINE 0.2 (NORMAL) E.U./dL (NORMAL)
[2023-09-04 12:43] LABS: CLARITY,URINE CLOUDY (CLEAR)
[2023-09-04 12:44] LABS: HCG UR QUAL NEGATIVE
[2023-09-04 12:49] LABS: BACTERIA,URINE Few /HPF (None Seen); RBC,URINE TNTC /HPF (0-5); SQUAMOUS EPITHELIAL CELL,UR MOD Squamous (<= Few)
[2023-09-04] MEDS ORDERED: iohexoL-300 100 ML VIAL ONE (13:12)
[2023-09-04] MEDS: ONDANSETRON 4 MG/2 ML VIAL IVP STA (13:22)
[2023-09-04] MEDS: SODIUM CHLORIDE 0.9% 1,000 ML IV STA (13:22)
[2023-09-04] MEDS: HYDROmorphone 1 MG/ML CARPUJECT IVP STA (13:22)
--- NOTE | 2023-09-04 13:24 | ED Physician Documentation ---
PD HPI ABD PAIN - Stated complaint Stated Complaint: VOMITING - Chief complaint Chief Complaint: Abd Pain - History obtained from History obtained from: Patient - History of Present Illness Timing - onset: Today Timing - duration: Days (1) Timing - details: Abrupt onset Pain level max: 8 Pain level now: 8 Quality: Aching, Pain Location: Epigastric Radiation: No: Chest, , Lower back, Left flank, Left shoulder, Right flank, R ight shoulder, Upper back Improved by: Vomiting Worsened by: Eating Associated symptoms: Nausea, Vomiting, Constipation, Vaginal bleeding (currently on her menses). No: Fever, Hematemesis, Diarrhea, Melena, Hematochezia, Dysuria, Hematuria, Chest pain Recently seen: Not recently seen - Additional information Additional information: No recent travel, no recent antibiotics. Review of Systems Constitutional: denies: Fever, Chills Cardiac: denies: Chest pain / pressure Respiratory: denies: Cough GI: reports: Nausea, Vomiting. denies: Hematemesis, Bloody / black stool Skin: denies: Rash Musculoskeletal: denies: Neck pain, Back pain Neurologic: denies: Headache PD PAST MEDICAL HISTORY - Past Medical History Past Medical History: Yes Cardiovascular: None Respiratory: None Neuro: None Endocrine/Autoimmune: None GI: Ulcers POT ANNEALER: Ovarian cysts HEENT: None Musculoskeletal: None Derm: None - Past Surgical History Past Surgical History: Yes General: Cholecystectomy /POT ANNEALER: section - Present Medications Home Medications: Ambulatory Orders Medication Instructions Recorded Confirmed Oxycodone HCl/Acetaminophen 1 - 2 tab PO Q4H PRN #10 tablet 03/09/15 11/30/15 [Percocet 5-325 mg Tablet] Acetaminophen [Tylenol Extra 1,000 mg PO Q8HR 11/30/15 11/30/15 Strength] Amoxicillin 11/30/15 Cefdinir 300 mg PO BID #14 capsule 11/30/15 Docusate Sodium 250Mg Capsule 250 mg PO BID 11/30/15 11/30/15 [Colace 250Mg Capsule] Ibuprofen 800 mg PO TID 11/30/15 11/30/15 HYDROcod/ACETAM 5/325 [[place] 5/325] 1 - 2 ea PO Q6H PRN #7 tablet 07/28/17 Hydrocodone/Acetaminophen 1 - 2 each PO Q6H PRN #14 tablet 09/08/18 [Hydrocodon-Acetaminophen 5-325] Ibuprofen [Motrin] 800 mg PO Q8H PRN #30 tablet 09/08/18 Ondansetron Odt [Zofran] 4 mg TL Q6H PRN #10 tablet 09/08/18 Mupirocin 1 gm TP TID 10 Days #1 [email or web address] 01/09/20 Neomycin/Polymyx/Hc Otic Drops 4 drops OT QID 10 Days #1 bottle 01/09/20 [Cortisporin Ear Susp] Tramadol HCl [Ultram] 50 mg PO Q6H PRN 3 Days #10 tablet 01/09/20 Cefdinir 300 mg PO BID #14 cap 04/05/21 Ondansetron Odt [Zofran] 4 mg TL Q6H PRN #10 tablet 04/05/21 Naproxen 250 mg PO BID PRN #15 tablet 11/29/21 methocarbamoL [Robaxin] 500 mg PO Q6H #20 tablet 11/29/21 oxyCODONE [Roxicodone] 5 mg PO Q6H PRN #15 tablet 12/17/21 Famotidine [Pepcid] 20 mg PO BID #60 tablet 09/04/23 Ondansetron Odt [Zofran] 4 mg TL Q6H PRN #10 tablet 09/04/23 oxyCODONE [Roxicodone] 5 - 10 mg PO Q6H PRN #10 tablet 09/04/23 MDD 6 - Allergies Allergies/Adverse Reactions: Allergies Allergy/AdvReac Type Severity Reaction Status Date / Time Penicillins Allergy Intermediate Rash Verified 09/04/23 11:48 Tetracyclines Allergy Intermediate Rash Verified 09/04/23 11:48 cephalexin monohydrate * AdvReac Intermediate VOMITING Verified 09/04/23 11:48 [From Keflex] erythromycin base AdvReac VOMITING Verified 09/04/23 11:48 - Social History Does the pt smoke?: No Smoking Status: Former smoker Does the pt drink ETOH?: Yes Does the pt have substance abuse?: No - Immunizations Immunizations are current?: Yes - POLST Patient has POLST: No PD ED PE NORMAL - Vitals Vital signs reviewed: Yes - General General: Alert and oriented X 3, No acute distress - HEENT HEENT: PERRL, Moist mucous membranes - Cardiac Cardiac: RRR, Strong equal pulses - Respiratory Respiratory: No respiratory distress, Clear bilaterally - Abdomen Abdomen: Soft, Non distended, Other (Tender palpation epigastric without peritoneal signs.) - Back Back: No CVA TTP, No spinal TTP - Derm Derm: Warm and dry - Neuro Neuro: Alert and oriented X 3 - Psych Psych: Normal mood, Normal affect Results - Vitals Vitals: Vital Signs - 24 hr 09/04/23 09/04/23 09/04/23 11:48 15:54 16:17 Temperature 37 C 36.0 C L Heart Rate 74 76 68 Respiratory 20 16 18 Rate Blood Pressure 138/108 H 121/79 117/77 O2 Saturation 99 97 99 Oxygen O2 Source Room air - Labs Labs: Laboratory Tests 09/04/23 09/04/23 09/04/23 12:05 12:05 12:28 WBC 13.4 H RBC 4.54 Hgb 13.5 Hct 40.1 MCV 88.3 MCH 29.7 MCHC 33.7 RDW 12.3 Plt Count 346 MPV 9.9 Neut # (Auto) 11.5 H Lymph # (Auto) 1.4 L [place] # (Auto) 0.5 Eos # (Auto) 0.0 Baso # (Auto) 0.0 Absolute Nucleated RBC 0.00 Nucleated RBC % 0.0 Sodium 139 Potassium 4.0 Chloride 105 Carbon Dioxide 29 Anion Gap 5.0 L BUN 14 Creatinine 0.8 Estimated GFR (MDRD) 78 L Glucose 133 H Calcium 9.6 Total Bilirubin 0.6 AST 14 ALT 14 Alkaline Phosphatase 65 Total Protein 7.1 Albumin 4.5 Globulin 2.6 Albumin/Globulin Ratio 1.7 Lipase 28 Urine Color DARK YELLOW Urine Clarity CLOUDY Urine pH 6.5 Ur Specific [place] >=1.030 H Urine Protein TRACE Urine Glucose (UA) NEGATIVE Urine Ketones NEGATIVE Urine Occult Blood LARGE H Urine Nitrite NEGATIVE Urine Bilirubin NEGATIVE Urine Urobilinogen 0.2 (NORMAL) Ur Leukocyte Esterase SMALL H Urine RBC TNTC H Urine WBC 6-10 H Ur Squamous Epith Cells MOD Squamous H Urine Bacteria Few Ur Microscopic Review INDICATED Urine Culture Comments NOT INDICATED Urine HCG, Qual NEGATIVE - Rads (name of study) CT abdomen pelvis Relevant Findings:: Final report received, See rad report PD Medical Decision Making - ED course Complexity details: reviewed results, re-evaluated patient, considered differential, d/w patient ED course: Patient is well-appearing, nontoxic. Afebrile. Pain greatly improved with Zofran and Dilaudid. She is continuing to be tender epigastric, therefore CT scan was performed. This shows worsening right-sided hydronephrosis that has been there for several years. She has been told to follow-up with this in the past but has not followed up with urology. I did speak with urology, Dr. Maradiaga, recommends follow-up in clinic. Does not recommend any further testing for this at this time. Patient is tolerating p.o. without difficulty. No other acute findings on CT scan. Urinalysis appears contaminated. Possible viral gastroenteritis? Possible gastritis versus GERD versus ulcer. Will place on pain medication, nausea medication and H2 lashonda for home. Recommend she follow-up with her PCP for further care. Abdomen is soft, mildly tender epigastric on serial exam. No right upper quadrant tenderness, right lower quadrant tenderness or any peritoneal signs. Patient counseled regarding signs and symptoms for which I believe and urgent re-evaluation would be necessary. Patient with good understanding of and agreement to plan and is comfortable going home at this time This document was made in part using voice recognition software. While efforts are made to proofread this document, sound alike and grammatical errors may occur. Departure - Departure Disposition: 01 Home, Self Care Clinical Impression: Abdominal pain Qualifiers: Abdominal location: epigastric Qualified Code(s): R10.13 - Epigastric pain Vomiting Qualifiers: Vomiting type: unspecified Nausea presence: with nausea Qualified Code(s): R11.2 - Nausea with vomiting, unspecified Hydronephrosis Qualifiers: Hydronephrosis type: unspecified Qualified Code(s): N13.30 - Unspecified hydronephrosis Condition: Good Instructions: ED Nausea Vomiting Follow-Up: Joss Maradiaga MD [Provider Admit Priv/Credential] - your,doctor [Other] - Within 1 week Prescriptions: Famotidine [Pepcid] 20 mg PO BID #60 tablet oxyCODONE [Roxicodone] 5 - 10 mg PO Q6H PRN #10 tablet MDD 6 PRN Reason: pain Ondansetron Odt [Zofran] 4 mg TL Q6H PRN #10 tablet PRN Reason: Nausea / Vomiting Comments: Please follow-up with your doctor for further care. Your prescriptions were sent to [facility] in [place]. Please avoid any anti-inflammatory medications such as Motrin as this could irritate your stomach. Please follow-up with urology as we discussed for the enlargement of the right kidney, known as hydronephrosis, it does appear that there is likely a stricture in the ureter which is the tube that connects the kidney to the bladder. This has been there for several years as previously discussed but has been continuing to get worse. I am prescribing a short course of narcotic pain medication for you. These are potentially dangerous and addictive medications that should be used carefully. These medications may constipate you. Take an bjdy-smd-ybwruzw stool softener (docusate) twice daily with plenty of water while taking these medications. If you go 24 hours without a bowel movement, take futh-ppx-aaysspt miralax, per package instructions. Do not drink or drive while taking these medications. If you received narcotic or sedating medications while in the emergency department, do not drive for 24 hours. Store this medication in a safe, secure place and out of reach of children. It is a violation of federal law to give or sell this medication to another person or to use in a manner other than prescribed. The ED will not refill narcotic prescriptions, including prescriptions lost or stolen. To dispose of unwanted medications: 1. [facility] at [address] in [place] has a medication drop box. They accept prescription medications (in pill form) Saturday through Saturday 9:00 a.m. to 5:00 p.m. 2. The [facility] [employer] accepts prescription medications (in pill form only) for disposal year round. Call for more information. 3. Contact the [facility] for the next [facility] sponsored prescription drug collection event. , [phone], or [phone]; EXAM: [id number] CT/ABPEW ([id number]) PROCEDURE: Abdomen/Pelvis W INDICATIONS: epigastric abd pain, vomiting CONTRAST: 100 ML OMNI 300 TECHNIQUE: After the administration of intravenous contrast, a CT scan of the abdomen and pelvis was performed. Images were recorded and evaluated at appropriate window settings. Reformats: coronal and sagittal. For radiation dose reduction, the following was used: automated exposure control, adjustment of mA and/or kV according to patient size. COMPARISON: CT abdomen pelvis 11/30/2015 FINDINGS: Image quality: Diagnostic. Lower chest: Unremarkable. Liver: No solid mass. Liver is enlarged measuring 19.8 cm. Gallbladder: Removed. Biliary tree: No intrahepatic or extrahepatic dilation, accounting for age. Spleen: No splenomegaly. Pancreas: No pancreatic ductal dilation. Adrenals: No adrenal nodule. Kidneys and ureters: There is significant right hydronephrosis with dilated renal pelvis as well as very proximal hydroureter. The ureter then immediately tapers to normal caliber. This was present on prior exam although more prominent. Stomach, bowel and peritoneum: No gastric or small bowel dilation. No abnormal wall thickening. No pathologic free fluid. Lymph nodes: No central or retroperitoneal adenopathy. Vessels: No infrarenal aortic aneurysm. Patent portal vein. PELVIS Reproductive organs: Unremarkable. Bladder: No abnormal wall thickening, accounting for underdistention. Pelvic lymph nodes: No pelvic adenopathy by size criteria. Bones: No aggressive osseous abnormality. Other: No significant ventral or inguinal hernia. IMPRESSION: Progressive appearance of right hydronephrosis and hydroureter suggestive of UPJ obstruction. Further evaluation with urology/IVP may be obtained as clinically indicated. Otherwise, no acute intra-abdominal or pelvic process. Forms: PCP List Discharge Date/Time: 09/04/23 16:17
--- NOTE | 2023-09-04 14:18 | CT Report ---
PROCEDURE: Abdomen/Pelvis W INDICATIONS: epigastric abd pain, vomiting CONTRAST: 100 ML OMNI 300 TECHNIQUE: After the administration of intravenous contrast, a CT scan of the abdomen and pelvis was performed. Images were recorded and evaluated at appropriate window settings. Reformats: coronal and sagittal. F or radiation dose reduction, the following was used: automated exposure control, adjustment of mA and /or kV according to patient size. COMPARISON: CT abdomen pelvis 11/30/2015 FINDINGS: Image quality: Diagnostic. Lower chest: Unremarkable. Liver: No solid mass. Liver is enlarged measuring 19.8 cm. Gallbladder: Removed. Biliary tree: No intrahepatic or extrahepatic dilation, accounting for age. Spleen: No splenomegaly. Pancreas: No pancreatic ductal dilation. Adrenals: No adrenal nodule. Kidneys and ureters: There is significant right hydronephrosis with dilated renal pelvis as well as v javad proximal hydroureter. The ureter then immediately tapers to normal caliber. This was present on p rior exam although more prominent. Stomach, bowel and peritoneum: No gastric or small bowel dilation. No abnormal wall thickening. No pa thologic free fluid. Lymph nodes: No central or retroperitoneal adenopathy. Vessels: No infrarenal aortic aneurysm. Patent portal vein. PELVIS Reproductive organs: Unremarkable. Bladder: No abnormal wall thickening, accounting for underdistention. Pelvic lymph nodes: No pelvic adenopathy by size criteria. Bones: No aggressive osseous abnormality. Other: No significant ventral or inguinal hernia. IMPRESSION: Progressive appearance of right hydronephrosis and hydroureter suggestive of UPJ obstruction. Further evaluation with urology/IVP may be obtained as clinically indicated. Otherwise, no acute intra-abdominal or pelvic process. Reviewed by: Jackie Ruggiero MD on 09/04/2023 2:17 PM PDT Approved by: Jackie Ruggiero MD on 09/04/2023 2:17 PM PDT Station ID: [id number]
[2023-09-04] MEDS: iohexoL-300 100 ML VIAL IVP ONE (14:33)
[2023-09-04] MEDS: oxyCODONE 5 MG TABLET PO STA (14:51)
[2023-09-04] MEDS: PROMETHAZINE INJ 25 MG in SODIUM CHLORIDE 0.9% 50 ML IV STA (15:31)
[2023-09-04 16:22] VITALS: BP 117/77; O2SAT 99
== END 2023-09-04 16:17 | disposition home or self-care (01) ==
LOC: ED 11:30
DX: N13.30 Unspecified hydronephrosis (principal); R10.13 Epigastric pain; R11.2 Nausea with vomiting, unspecified; Z79.899 Other long term (current) drug therapy
CPT/HCPCS: 36415; 74177; 80053; 81001; 81025; 83690; 85025; 96374; 96375; 99284; A9270; J1170; J7040; Q9967; 81003; 87086

== ENCOUNTER 2023-10-14 08:50 | Day surgery (SDC) | payer MEDICARE, BC ==
[~2023-10-14 08:50] MED LIST: CIPROFLOXACIN 400 MG/200 ML 400 MG/200 ML BAG IV ONE
[2023-10-14] MEDS: LACTATED RINGERS 1,000 ML IV ONE ×2 (09:00→11:34)
[2023-10-14 09:13] LABS: HCG UR QUAL NEGATIVE
[2023-10-14] MEDS ORDERED: METOCLOPRAMIDE 10 MG/2 ML VIAL IVP PRN (10:16)
[2023-10-14] MEDS ORDERED: MORPHINE 2 MG/ML CARPUJECT IVP PRN (10:16)
[2023-10-14] MEDS ORDERED: ONDANSETRON 4 MG/2 ML VIAL IVP PRN (10:16)
[2023-10-14] MEDS ORDERED: HYDROmorphone 0.5 MG/0.5 ML SYRINGE IVP PRN (10:16)
[2023-10-14] MEDS ORDERED: fentaNYL 100 MCG/2 ML VIAL IVP PRN (10:16)
[2023-10-14] MEDS ORDERED: ATROPINE ABBOJECT 1 MG/10 ML SYRINGE IVP PRN (10:16)
[2023-10-14] MEDS ORDERED: ePHEDrine 50 MG/ML VIAL IVP PRN (10:16)
[2023-10-14] MEDS ORDERED: NALOXONE 0.4 MG/ML VIAL IVP PRN (10:16)
--- NOTE | 2023-10-14 10:16 | ANESTHESIA ---
Pre-Anesthesia VS, & Labs - Diagnosis UPJ obstruction - Procedure cysto; retrograde pyelogram Vital Signs: Temp Pulse Resp BP Pulse Ox O2 Flow Rate 36.4 C L 73 17 116/53 L 99 10/14/23 09:01 10/14/23 09:01 10/14/23 09:01 10/14/23 09:01 10/14/23 09:01 Height: 5 ft 4 in Weight (kg): 58.3 kg Body Mass Index: 22.0 BMI Classification: Normal - NPO >8 hours - Is Patient ?: No - Lab Results Lab results reviewed: Yes Home Medications and Allergies Allergies/Adverse Reactions: Allergies Allergy/AdvReac Type Severity Reaction Status Date / Time Penicillins Allergy Intermediate Rash Verified 10/14/23 09:21 Tetracyclines Allergy Intermediate Rash Verified 10/14/23 09:21 cephalexin monohydrate * AdvReac Intermediate VOMITING Verified 10/14/23 09:21 [From Keflex] erythromycin base AdvReac VOMITING Verified 10/14/23 09:21 Anes History & Medical History - Anesthetic History Anesthesia Complications: reports: No previous complications Family history of Anesthesia Complications: Denies - Medical History Cardiovascular: reports: None Pulmonary: reports: None Gastrointestinal: reports: None Urinary: reports: None Neuro: reports: None Musculoskeletal: reports: None Endocrine/Autoimmune: reports: None Blood Disorders: reports: None Skin: reports: None Smoking Status: Former smoker (vapes currently) Psychosocial: reports: No issues indicated - Surgical History General: reports: Cholecystectomy, Other Gynecologic: reports: section Results - EKG Results EKG Comparison: Reviewed EKG Exam General: Alert, Oriented x3 Dental: WNL Mouth Openin Fingerbreadth Neck Mobility: Normal Mallampati classification: II Thyromental Distance: 4-6 cm Respiratory: Lungs clear Cardiovascular: Regular rate Plan Anesthesia Type: General Consent for Procedure(s) Verified and Reviewed: Yes Code Status: Attempt Resuscitation ASA classification: 2-Mild systemic disease Is this case an emergency?: No
[2023-10-14] MEDS ORDERED: PROPOFOL 200 MG/20 ML VIAL IVP ONE (10:38)
[2023-10-14] MEDS ORDERED: LIDOCAINE-PF 2% 10 ML AMP SUBQ ONE (10:38)
[2023-10-14] MEDS ORDERED: ROCURONIUM 50 MG/5 ML VIAL ONE (10:38)
[2023-10-14] MEDS ORDERED: MIDAZOLAM 2 MG/2 ML VIAL ONE (10:38)
[2023-10-14] MEDS ORDERED: fentaNYL 100 MCG/2 ML VIAL ONE (10:39)
[2023-10-14] MEDS ORDERED: iohexoL-240 10 ML VIAL IVP ONE (10:40)
[2023-10-14] MEDS ORDERED: LIDOCAINE 2% URO-JET 5 ML SYRINGE UR ONE (10:40)
[2023-10-14] MEDS ORDERED: LACTATED RINGERS 1,000 ML IV SCH (11:00)
[2023-10-14] MEDS ORDERED: ONDANSETRON 4 MG/2 ML VIAL ONE (11:14)
[2023-10-14] MEDS ORDERED: DEXAMETHASONE 4 MG/ML VIAL ONE (11:14)
[2023-10-14] MEDS: LIDOCAINE 2% URO-JET 5 ML SYRINGE UR ONE (11:18)
[2023-10-14] MEDS: iohexoL-240 10 ML VIAL IVP ONE (11:18)
[2023-10-14] MEDS ORDERED: SUGAMMADEX 200 MG/2 ML VIAL IVP ONE (11:24)
[2023-10-14] MEDS ORDERED: KETOROLAC 30 MG/ML VIAL ONE (11:24)
[2023-10-14] MEDS ORDERED: HYDROcod/ACETAM 5/325 MG TABLET PO PRN (11:53)
[2023-10-14 11:54] VITALS: O2SAT 100
--- NOTE | 2023-10-14 11:56 | Discharge Plan ---
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 This requires advanced surgical management to fix. You do not have a stent in place. You will be contacted by [facility] in the coming month for further management No Smoking: If you smoke, Please STOP! Call for help.
--- NOTE | 2023-10-14 12:00 | OPERATIVE REPORT ---
Operative Report - General Procedure Date: 10/14/23 Planned Procedure: Cystoscopy, right endopyelotomy, right retrograde pyelogram, stent Pre-Op Diagnosis: right UPJ obstruction Procedure Performed: Cystoscopy,urethral dilation, right retrograde pyelogram Post Op Diagnosis: duplicated right renal system, urethral stricture - Procedure Note Primary Surgeon: Hiren Anesthesia Provider: JOSEFA Gilliam Anesthesia Technique: General LMA Pathology: none Estimated Blood Loss (mL): 0 Indications: Right UPJ obstruction Findings: Duplicated right renal system with small upper pole nonobstructing moiety and duplicated ureter which connects at the proximal ureter with a severely hydronephrotic and obstructed right renal lower pole system Urethral stricture Complications: Change in anatomy status prevented endopyelotomy procedure - Other Other Information/Narrative: After informed sent was obtained the patient was brought to the OR and laid in the supine position. The patient was anesthetized per anesthesia protocols and prepped draped in usual sterile fashion. She was placed in dorsolithotomy position. A formal timeout was performed reconfirming the patient, procedure and laterality. Her urethral meatus was noted to be narrow and so dilated from 16 [place] up to 24 [place]. A 22 [place] scope was advanced to the urinary bladder. Bladder inspected and full and there were no masses, lesions or other concerns. A 5 [place] open-ended catheter was placed into the right UVJ and a gentle retrograde pyelogram was performed. This showed a narrow and normal course of the ureter up in the proximal ureter where could see there was a sharp bifurcation of the ureter with the normal course ureter heading cranially to a small upper pole moiety of her kidney. There was a sharp bifurcation with the lower pole moiety ureter almost aiming caudally and we could see that there was severe hydronephrosis of that lower pole moiety from there. We now could see that this was clearly a duplicated system issue and not a UPJ obstruction issue. To this end we did not pursue an endopyelotomy. I will refer to the [facility] for further management and likely will require surgical repair. We emptied her bladder and placed a Uro-Jet. Patient tolerated the procedure well and was brought to PACU without further incident
[2023-10-14] MEDS: IBUPROFEN 800 MG TABLET PO PRN (12:15)
--- NOTE | 2023-10-14 12:29 | ANESTHESIA POST OP EVALUATION ---
Anesthesia Post Eval - Post Anesthesia Eval Vitals: Last Vital Signs Temp 36.3 C L 10/14/23 12:23 Pulse 68 10/14/23 12:23 Resp 14 10/14/23 12:23 BP 114/84 H 10/14/23 12:23 Pulse Ox 100 10/14/23 12:23 O2 Flow Rate CV Function Including HR & BP: Stable Pain Control: Satisfactory Nausea & Vomiting: Negative Mental Status: Baseline Respiratory Status: Airway Patent Hydration Status: Satisfactory Anesthesia Complications: None
[2023-10-14 12:35] VITALS: BP 114/84
--- NOTE | 2023-10-14 22:09 | XRAY Report ---
PROCEDURE: OR C-Arm Procedure INDICATIONS: STENT PLACEMENT/LASER LITHO FLUORO TIME: 000.5 TECHNIQUE: Single intraoperative fluoroscopic image. COMPARISON: CT abdomen 09/04/2023 FINDINGS: Labeled right side demonstrates hydronephrosis and hydroureter. Filling defect is identified within t he mid ureter. IMPRESSION: Hydronephrosis and hydroureter with ureteral filling defect possibly related to passage of stone. Rec ommend correlation to real-time operative report. Reviewed by: Jackie Ruggiero MD on 10/14/2023 9:57 PM PDT Approved by: Jackie Ruggiero MD on 10/14/2023 9:57 PM PDT Station ID: [id number]
== END 2023-10-14 08:51 | disposition home or self-care (01) ==
LOC: SDS 08:50
PROVIDERS: ATTEND Urology
DX: N35.92 Unspecified urethral stricture, female (principal); Q62.5 Duplication of ureter; N13.30 Unspecified hydronephrosis
CPT/HCPCS: 52281; 81025; A9270; C1758; J7120; Q9966